=== PATIENT | male | born 1980 | race Hispanic/Latino ===

== ENCOUNTER 2017-10-10 06:05 | Emergency (ER) | payer BC ==
--- NOTE | 2017-10-10 06:54 | ED PDOC ---
HPI: Psych/Substance Abuse Chief Complaint (Provider): Acute alcohol intoxication Additional History Per: Patient, Family Additional Complaint(s): This is 37 y/o male with no PMH and social alcohol user comes to the ER for evaluation of acute alcohol intoxication at his cousins wedding. Patient admits having too much to drink/whisky, patient admits smoking 1 or 2 cig as well but denies any illicit drug use or ingestion of any other substance. Patient was monitored by a brother this whole time and agrees with patient's history. Denies any vomiting, any trauma, any falls, any LOC. Patient denies this much intoxications before in his life. <Rosie Jean Baptiste - Last Filed: 10/10/17 07:03> <Ronnie Charles - Last Filed: 10/10/17 19:48> Time Seen by Provider: 10/10/17 06:29 Chief Complaint (Nursing): Alcohol Ingestion Past Medical History Reviewed: Vital Signs Vital Signs: Last Vital Signs Temp 98.7 F 10/10/17 06:21 Pulse 118 H 10/10/17 06:21 Resp 16 10/10/17 06:21 BP 143/91 H 10/10/17 06:21 Pulse Ox 96 10/10/17 06:21 - Medical History PMH: Asthma Denies: Chronic Kidney Disease - Surgical History Surgical History: No Surg Hx - Family History Family History: States: No Known Family Hx - Living Arrangements Living Arrangements: With Family - Social History Current smoker - smoking cessation education provided: Yes Ex-Smoker (has not smoked in the last 12 months): No Alcohol: Social Drugs: Denies <Rosie Jean Baptiste - Last Filed: 10/10/17 07:03> Vital Signs: Last Vital Signs Temp 98.1 F 10/10/17 11:51 Pulse 99 H 10/10/17 11:51 Resp 18 10/10/17 11:51 BP 123/75 10/10/17 11:51 Pulse Ox 100 10/10/17 11:51 <Ronnie Charles - Last Filed: 10/10/17 19:48> - Allergies Allergies/Adverse Reactions: Allergies Allergy/AdvReac Type Severity Reaction Status Date / Time No Known Allergies Allergy Verified 10/10/17 06:26 Review of Systems Constitutional: Negative for: Fever Eyes: Negative for: Pain Cardiovascular: Negative for: Chest Pain, Palpitations Respiratory: Negative for: Cough, Shortness of Breath Gastrointestinal: Negative for: Vomiting, Abdominal Pain, Diarrhea Genitourinary Male: Negative for: Dysuria Neurological: Negative for: Weakness, Numbness <Rosie Jean Baptiste - Last Filed: 10/10/17 07:03> Physical Exam - Reviewed Nursing Documentation Reviewed: Yes Vital Signs Reviewed: Yes - Physical Exam Appears: Positive for: No Acute Distress (but intoxicated and little agitated, alert, awake and oriented x2 ) Head Exam: Positive for: ATRAUMATIC Skin: Positive for: Normal Color, Warm Eye Exam: Positive for: Normal appearance ENT: Positive for: Normal ENT Inspection Cardiovascular/Chest: Positive for: Regular Rate, Rhythm Respiratory: Positive for: Normal Breath Sounds Gastrointestinal/Abdominal: Positive for: Normal Exam, Bowel Sounds, Soft Extremity: Positive for: Normal ROM. Negative for: Tenderness Neurologic/Psych: Positive for: Alert, Oriented. Negative for: Motor/Sensory Deficits <Rosie Jean Baptiste - Last Filed: 10/10/17 07:03> - ECG O2 Sat by Pulse Oximetry: 96 - Progress ED Course And Treament: 37 y/o with acute whisky intoxication - Observed - Educated and encouraged on alcohol cessation - Discharge home Case discussed with Dr. Charles Re-evaluation Time: 07:01 Condition: Unchanged <Rosie Jean Baptiste - Last Filed: 10/10/17 07:03> Medical Decision Making Medical Decision Making: Acute alcohol intoxication <Rosie Jean Baptiste - Last Filed: 10/10/17 07:03> Medical Decision Making: RN informed by provider that patient unable to ambulate with brother and is agitated; discharge was held and patient signed out to Dr Mistry at 7AM pending sobriety <Ronnie Charles - Last Filed: 10/10/17 19:48> Disposition - Patient ED Disposition Is Patient to be Admitted: No - Disposition Disposition: Routine/Home Disposition Time: 07:02 <Rosie Jean Baptiste - Last Filed: 10/10/17 07:03> - Patient ED Disposition Is Patient to be Admitted: Transfer of Care - Disposition Disposition: Transfer of Care Patient Signed Over To: Nerissa Mistry <Ronnie Charles - Last Filed: 10/10/17 19:48> - Clinical Impression Clinical Impression: Acute alcohol intoxication - Disposition Condition: FAIR Instructions: Alcohol Intoxication (ED) Forms: [facility] (Japanese)
--- NOTE | 2017-10-10 07:51 | ED PDOC ---
- ECG O2 Sat by Pulse Oximetry: 96 Medical Decision Making Medical Decision Making: Time: 07:00 Patient was discharged by Dr. Charles but started acting agitated and violent and is thus kept under observation for further evaluation. Time: 07:47 Plan: Lorazepam 2mg IM Nursing communication 1:1 Observation Restraint: violent or harm to self/other Reevaluation Time: 09:50 Patient is sleeping and is no longer agiatated. 1:1 observation will be discontinued. Scribe Attestation: Documented by Christina Jean Baptiste acting as a scribe for Nerissa Mistry MD. Scribe Attestation: All medical record entries made by the Scribe were at my direction and personally dictated by me. I have reviewed the chart and agree that the record accurately reflects my personal performance of the history, physical exam, medical decision making, and the department course for this patient. I have also personally directed, reviewed, and agree with the discharge instructions and disposition. 11.30a - patient awake. now cooperative. has been able to ambulate steadily to the bathroom. His brother is here and is willing to take him back to his family. Disposition Doctor Will See Patient In The: Office Counseled Patient/Family Regarding: Diagnosis, Need For Followup - Clinical Impression Clinical Impression: Acute alcohol intoxication - POA Present On Arrival: None - Disposition Disposition: Routine/Home Disposition Time: 11:50 Condition: FAIR Instructions: Alcohol Intoxication (ED) Forms: [facility] (Chinese)
[2017-10-10 10:10] LABS: BARBITURATES, UR NEGATIVE (NEGATIVE); BENZODIAZEPINES, UR NEGATIVE (NEGATIVE); OPIATES, UR NEGATIVE (NEGATIVE); PHENCYCLIDINE, UR NEGATIVE (NEGATIVE)
[2017-10-10 11:51] VITALS: BP 123/75; PULSE 99; RESP 18; TEMP 98.1; O2SAT 100
== END 2017-10-10 12:10 | disposition home or self-care (01) ==
LOC: H.ER 06:05
DX: F10.129 Alcohol abuse with intoxication, unspecified (principal); J45.909 Unspecified asthma, uncomplicated
CPT/HCPCS: 96372; 99284; G0480; J2060